=== PATIENT | male | born 1975 ===

== ENCOUNTER 2018-03-25 14:05 | Emergency (ER) | payer BC ==
[2018-03-25 14:16] VITALS: O2SAT 99
--- NOTE | 2018-03-25 16:00 | ED PDOC ---
HPI: Chest Pain Time Seen by Provider: 03/25/18 14:39 Chief Complaint (Nursing): Chest Pain Chief Complaint (Provider): Left shoulder/chest pain History Per: Patient History/Exam Limitations: no limitations Onset/Duration Of Symptoms: Days Current Symptoms Are (Timing): Still Present Context: Other (turning neck to the left or extension of neck) Quality: Aching Associated Symptoms: Other (Left hand tingling and Left leg tingling ) Additional Complaint(s): 43 M with no significant PMH and no family hx of CAD presents c/o Left shoulder and chest pain for the past week. He states that he woke up from sleep about 1 week ago with Left arm pain that radiates to upper left chest and under his arm w/ associated numbness/tingling of Left arm. Has been taking Ibuprofen w/ some relief. Denies hx of CAD/CA, HTN, HL, smoking, N/V, epigastric pain. Pain has been fairly constant for the past week. He went to PMD this morning who was concerned for radicular neck pain and wanted patient to have CT scan. Past Medical History Reviewed: Historical Data, Nursing Documentation, Vital Signs Vital Signs: Last Vital Signs Temp 97 F L 03/25/18 14:12 Pulse 92 H 03/25/18 14:12 Resp 18 03/25/18 14:12 BP 107/83 03/25/18 14:12 Pulse Ox 99 03/25/18 14:12 - Medical History PMH: No Chronic Diseases - Surgical History Surgical History: No Surg Hx - Family History Family History: States: Unknown Family Hx - Social History Current smoker - smoking cessation education provided: No Ex-Smoker (has not smoked in the last 12 months): No Alcohol: None - Home Medications Home Medications: Ambulatory Orders Medication Instructions Recorded Cyclobenzaprine [Flexeril] 5 mg PO Q8 5 Days tab 03/25/18 Naproxen 500 mg PO BID PRN 7 Days ect 03/25/18 - Allergies Allergies/Adverse Reactions: Allergies Allergy/AdvReac Type Severity Reaction Status Date / Time No Known Allergies Allergy Verified 03/25/18 14:12 Review of Systems ROS Statement: Except As Marked, All Systems Reviewed And Found Negative Musculoskeletal: Positive for: Neck Pain, Shoulder Pain Physical Exam - Reviewed Nursing Documentation Reviewed: Yes Vital Signs Reviewed: Yes - Physical Exam Appears: Positive for: Well Head Exam: Positive for: ATRAUMATIC Skin: Positive for: Normal Color Neck: Positive for: Normal, Decreased ROM (pain with left lateral rotation of neck) Cardiovascular/Chest: Positive for: Regular Rate, Rhythm Respiratory: Positive for: Normal Breath Sounds Back: Positive for: Normal Inspection Extremity: Positive for: Other (pain with abduction of Left arm and flexion of Left arm. Normal Radial pulse on Left. Good capillary refill.) DTR - Bicep (R): 2+ DTR - Bicep (L): 2+ Neurologic/Psych: Positive for: Alert - Laboratory Results Result Diagrams: 03/25/18 16:13 03/25/18 16:13 - ECG O2 Sat by Pulse Oximetry: 99 Medical Decision Making Medical Decision Making: EKG: sinus, HR 88, no ischemic change. CT neck and chest w/o contrast: unremarkable non-contrast enhanced CT of the neck and chest. CBC and CMP wnl. Flexeril and Toradol for pain. Re-evaluated at 5pm: some improvement in pain. pt advised to continue to use Flexeril and Ibuprofen for pain. Refrain from operating heavy machinery or driving while using Flexeril so avoid doses prior to work. Light duty for the next few days of work. F/u with PMD as may need referral for PT. Disposition - Clinical Impression Clinical Impression: Cervical radiculopathy - Patient ED Disposition Is Patient to be Admitted: No Counseled Patient/Family Regarding: Studies Performed, Diagnosis, Need For Followup - Disposition Referrals: Pino Henry MD [Family Provider] - Disposition: Routine/Home Disposition Time: 18:00 Condition: STABLE Additional Instructions: Cyclobenzaprine may cause sleepiness so avoid if going to operate heavy machinery. Naproxen for pain as needed. F/u with PMD as may need referral for Physical therapy. Prescriptions: Cyclobenzaprine [Flexeril] 5 mg PO Q8 5 Days tab Naproxen 500 mg PO BID PRN 7 Days ect PRN Reason: Pain, Moderate (4-7) Instructions: Radiculopathy (DC) Forms: [employer] (Amharic), [facility] ED School/Work Excuse Print Language: ZIMBABWEAN
[2018-03-25 16:18] LABS: BASO # 0.1 K/uL (0.0-0.2); BASO % 0.8 % (0.0-2.0); EOS # 0.3 K/uL (0.0-0.7); EOS % 2.9 % (0.0-4.0); HEMOGLOBIN 16.2 g/dL (12.0-18.0); LYMPH # 2.5 K/uL (1.0-4.3); LYMPH % 24.2 % (20.0-40.0); MEAN CELL VOLUME 95.7 fl (80.0-94.0); MEAN CORPUSCULAR HEMOGLOBIN 32.3 pg (27.0-31.0); MEAN CORPUSCULAR HGB CONC 33.7 g/dL (33.0-37.0); MEAN PLATELET VOLUME 7.4 fl (7.2-11.7); MONO # 1.1 K/uL (0.0-0.8); MONO % 10.9 % (0.0-10.0); NEUT # 6.3 K/uL (1.8-7.0); NEUT % 61.2 % (50.0-75.0); RBC 5.03 Mil/uL (4.40-5.90); RED CELL DISTRIBUTION WIDTH 13.3 % (11.5-14.5); WHITE BLOOD COUNT 10.3 K/uL (4.8-10.8)
[2018-03-25 16:32] LABS: ALB/GLOB RATIO 1.3 (1.0-2.1); ALBUMIN 4.6 g/dL (3.5-5.0); ALT/SGPT 87 U/L (21-72); AST/SGOT 52 U/L (17-59); BLOOD UREA NITROGEN 16 mg/dl (9-20); CALCIUM 9.8 mg/dL (8.4-10.2); GFR NON-AFRICAN AMERICAN > 60
--- NOTE | 2018-03-25 17:15 | CT ---
Date of service: 03/25/2018 PROCEDURE: CT Neck and Chest without contrast HISTORY: left arm paresthesias/numbness COMPARISON: None available. TECHNIQUE: Contiguous axial images were obtained through the neck and chest without intravenous contrast enhancement as requested. Sagittal and coronal reconstructions were performed. Radiation dose: Total exam DLP = 871.9 mGy-cm. This CT exam was performed using one or more of the following dose reduction techniques: Automated exposure control, adjustment of the mA and/or kV according to patient size, and/or use of iterative reconstruction technique. FINDINGS: Neck: Images through the supra and infrahyoid neck fail demonstrate definite cystic or solid mass lesion although dental hardware related artifacts obscure imaging through the oral cavity somewhat. Lack images contrast limits evaluation of the glands and vascular anatomy. Shotty submandibular and jugular digastric lymph nodes are identified in the neck. No occlusion of the aero-digestive tract in the neck. There is a reversal of the cervical curvature at the upper cervical spine with multilevel spondylosis appreciated. Craniocervical junction appears unremarkable. Incidental imaging of the inferior intracranial contents is unremarkable as well as the orbits and the visualized paranasal sinuses appear unremarkable. No mass is seen along the region of the brachial plexus bilaterally. LUNGS: Clear lungs. Visualized airway clear MEDIASTINUM: Unremarkable thoracic aorta. No aneurysm. Normal sized heart. Main pulmonary artery unremarkable. No vascular congestion. No significant lymphadenopathy. Shotty bilateral axillary lymph nodes identified. No aortic atherosclerotic calcification. PLEURA: No pleural fluid. No pneumothorax. BONES: No fracture. No destructive lesion. UPPER ABDOMEN: Grossly unremarkable. OTHER FINDINGS: None. IMPRESSION: Unremarkable non-contrast enhanced CT of the Neck and Chest.
[2018-03-25 18:05] VITALS: BP 124/61; PULSE 76; RESP 16; TEMP 97.9
== END 2018-03-25 18:05 | disposition home or self-care (01) ==
LOC: H.ER 14:05
DX: M54.12 Radiculopathy, cervical region (principal); Z87.891 Personal history of nicotine dependence
CPT/HCPCS: 70490; 71250; 80053; 85025; 96372; 99283; J1885

== ENCOUNTER 2018-05-06 07:51 | Emergency (ER) | payer BC ==
[2018-05-06 07:59] VITALS: RESP 18; TEMP 99; O2SAT 98; BMI 28.9
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
[2018-05-06 09:19] VITALS: BP 133/61; PULSE 97
--- NOTE | 2018-05-06 13:19 | RAD ---
Date of service: 05/06/2018 PROCEDURE: Radiographs of the right hand HISTORY: trauma COMPARISON: None. FINDINGS: BONES: Bone alignment and mineralization are normal. There is no acute displaced fracture or bone destruction. There is well corticated ossific density at the interphalangeal joint of the thumb with mild overlying soft tissue swelling which may represent an old injury or ligament ossification. JOINTS: The joint spaces are preserved. SOFT TISSUES: Normal. OTHER FINDINGS: None. IMPRESSION: No acute displaced fracture or dislocation.
== END 2018-05-06 09:22 | disposition home or self-care (01) ==
LOC: H.ER 07:51
DX: S60.229A Contusion of unspecified hand, initial encounter (principal)